=== PATIENT | male | born 1940 | race Caucasian/White ===

== ENCOUNTER → 2017-08-17 | Outpatient (CLI) | payer OTHER | LOC: BHFA 10:00 | PROVIDERS: ATTEND Internal Medicine Cardiovascular Disease | DX: I10 Essential (primary) hypertension (principal) ==

== ENCOUNTER 2017-09-02 06:33 | Inpatient (IN) | payer OTHER ==
[2017-09-02] MEDS ORDERED: NITROGLYCERIN 0.4 MG BTL SL PRN (06:37)
[2017-09-02] MEDS ORDERED: NS 1,000 ML IV SCH (06:37)
[2017-09-02] MEDS ORDERED: TEMAZEPAM 15 MG CAP PO PRN (06:37)
[2017-09-02] MEDS ORDERED: DIAZEPAM 5 MG TAB PO ONE (06:37)
[2017-09-02] MEDS ORDERED: ASPIRIN EC 325 MG TAB PO ONE ×2 (06:37→07:25)
[2017-09-02] MEDS ORDERED: FAMOTIDINE 20 MG TAB PO ONE (06:37)
[2017-09-02] MEDS ORDERED: diphenhydrAMINE 25 MG CAP PO ONE ×2 (06:37→07:25)
--- NOTE | 2017-09-02 06:56 | CPEKG ---
Heart Rate: 57 RR Interval: 1053 P-R Interval: 172 QRSD Interval: 112 QT Interval: 428 QTC Interval: 417 P [place]: 49 QRS [place]: -42 T Wave [place]: 44 EKG Severity - ABNORMAL ECG - EKG Impression: SINUS RHYTHM EKG Impression: LEFT ANTERIOR FASCICULAR BLOCK Electronically Signed By: Nikolai Moran 03-Sep-2017 13:08:38
[2017-09-02 07:16] LABS: PLATELET COUNT 203 10^3/uL (150-400)
[2017-09-02] MEDS ORDERED: FAMOTIDINE 20 MG TAB ONE (07:25)
[2017-09-02] MEDS ORDERED: DIAZEPAM 5 MG TAB ONE (07:25)
[2017-09-02] MEDS ORDERED: MIDAZOLAM 2 MG/2 ML VIAL ONE (07:29)
[2017-09-02] MEDS ORDERED: LIDOCAINE 1% 300 MG/30 ML SDV ONE (07:29)
[2017-09-02] MEDS ORDERED: fentaNYL 100 MCG/2 ML INJ ONE (07:29)
[2017-09-02] MEDS ORDERED: IOPAMIDOL (ISOVUE-370) 150 ML BTL IV ONE (07:30)
[2017-09-02 07:33] LABS: INR 1.01 (0.83-1.16); PROTIME(PATIENT) 13.5 SEC (12.0-15.0)
--- NOTE | 2017-09-02 08:29 | PDPROPOC ---
Sedation Plan of Care Sedation Plan of Care: vital signs stable, mental status noted, patient educated of risks, benefits, alternatives, patient can tolerate sedation ASA Classification: ASA 2 Planned drugs: fentanyl, midazolam Mallampati Score: Class 2 Mallampati Reference Image: Patient passed 3-3-2 rule?: Yes
--- NOTE | 2017-09-02 08:29 | PDHPUP ---
History & Physical Update H&P update statement: This history and physical update is based on an assessment of the patient which was completed after admission or registration (within 24 hours), but prior to the surgery/procedure. H&P update: H&P reviewed & patient examined, no change in patient's condition since H&P completed
[2017-09-02] MEDS ORDERED: ATROPINE SULFATE 1 MG/10 ML SYR IVP PRN (09:53)
[2017-09-02] MEDS ORDERED: ONDANSETRON 4 MG/2 ML VIAL IVP PRN (09:53)
--- NOTE | 2017-09-02 16:48 | CPIP ---
[f rep st] INVASIVE CARDIAC PROCEDURE DATE OF PROCEDURE: 09/02/2017 PROCEDURE: Coronary angiography. INDICATION: 1. Exertional symptoms of presyncope and syncope. 2. Exertional chest pain. 3. Abnormal stress test with chronotropic insufficiency. ACCESS: The patient was prepped and draped in the sterile fashion. 1% lidocaine was used to anesthe tize the right inguinal region. A 6-Egyptian introducer sheath was placed selectively into the right c ommon femoral artery via modified Seldinger technique. CORONARY ANGIOGRAPHY: A 6-Egyptian JL4 was advanced to the left main coronary artery and images obtain ed. The left main coronary artery bifurcated into an LAD and circumflex coronary arteries. The left main coronary artery was short but was free of any significant disease. The left anterior descendin g coronary artery is diffusely diseased. In the proximal segment, there is a long segmental 30% sten osis present. In the mid segment, there is a segmental 20% stenosis present. The circumflex coronar y artery was relatively small. The circumflex coronary artery appeared normal. A 6-Egyptian JR4 was a dvanced to the right coronary artery and images obtained. The right coronary artery is dominant. Th e right coronary artery had mild diffuse disease throughout. There was no stenosis greater than 10%. LEFT VENTRICULOGRAPHY: Left ventriculography was not performed. The patient will have an echocardio gram to evaluate LVF and valvular heart disease. /[id number]/MODL
[2017-09-03 04:39] LABS: PLATELET COUNT 189 10^3/uL (150-400)
[2017-09-03 04:47] LABS: INR 1.07 (0.83-1.16); PROTIME(PATIENT) 14.1 SEC (12.0-15.0)
[2017-09-03] MEDS ORDERED: BACITRACIN IRRIGATION/NS 50,000 UNITS/1,000 ML BTL IRR ONE ×2 (06:00→17:06)
[2017-09-03] MEDS ORDERED: NS 1,000 ML IV ONE ×2 (06:00→17:06)
[2017-09-03] MEDS ORDERED: diphenhydrAMINE 25 MG CAP PO ONE ×2 (06:00→17:06)
[2017-09-03] MEDS ORDERED: DIAZEPAM 5 MG TAB PO ONE (06:00)
[2017-09-03] MEDS ORDERED: ceFAZolin 2 GM/SWFI 2 GM/20 ML SYR IVP ONE ×2 (06:00→17:06)
[2017-09-03] MEDS ORDERED: BUPIVACAINE 0.5% 30 ML SDV ONE ×2 (08:48→17:08)
[2017-09-03] MEDS ORDERED: fentaNYL 100 MCG/2 ML INJ ONE ×2 (08:48→17:09)
[2017-09-03] MEDS ORDERED: LIDOCAINE 1% 300 MG/30 ML SDV ONE ×2 (08:48→17:08)
[2017-09-03] MEDS ORDERED: MIDAZOLAM 2 MG/2 ML VIAL ONE ×2 (08:48→17:08)
--- NOTE | 2017-09-03 08:49 | PDPROPOC ---
Sedation Plan of Care Sedation Plan of Care: vital signs stable, mental status noted, patient educated of risks, benefits, alternatives, patient can tolerate sedation ASA Classification: ASA 3 Planned drugs: fentanyl, midazolam Mallampati Score: Class 3 Mallampati Reference Image: Patient passed 3-3-2 rule?: Yes
[2017-09-03] MEDS ORDERED: LIDO/EPI 1% **for epidural** 30 ML SDV ONE ×2 (09:46→17:10)
--- NOTE | 2017-09-03 10:18 | ASMTCASEMG ---
Living Arrangements What is your living Answers: Alone arrangement? Who do you live with? Type Of Residence What kind of residence do Answers: House you live in? Discharge Plan Comments Coordination Status Comments Notes: CM spoke w/ GLENYS Mckeon regarding d/c POC. Pt is a 77 y/o man admitted for an coronary angiography. Anticipates that pt will d/c independent when medically stable. No therapies ordered at this time. CM available for changes. Plan: Independent Date Signed: 09/03/2017 10:17 AM Electronically Signed By:JOHNIE Olivarez
[2017-09-03] MEDS: CYANO/VITAMIN B12 1000 MCG TAB PO SCH (12:52)
[2017-09-03] MEDS: amLODIPine BESYLATE 5 MG TAB PO SCH (12:52)
[2017-09-03] MEDS: ASPIRIN 81 MG CHEWABLE TAB PO SCH (12:52)
[2017-09-03] MEDS: ATORVASTATIN CALCIUM 20 MG TAB PO SCH (12:52)
[2017-09-03] MEDS: ASCORBIC ACID 500 MG TAB PO SCH (12:52)
[2017-09-03] MEDS: CHOLECALCIFEROL VIT D3 1,000 UNITS TAB PO SCH (12:52)
[2017-09-03] MEDS: ENALAPRIL MALEATE 10 MG TAB PO SCH (12:53)
--- NOTE | 2017-09-03 14:07 | EPPROC ---
Electrophysiology Procedure Note: PROCEDURE PERFORMED: Implantation of an A/V Pacemaker Fluoroscopy INDICATION: Pt with episodes of syncope and presyncope found to have significant Sinus pauses of greater than 3 sec on multiple occasions. In view of this it was decided to perform a dual chamber pacemaker implant PROCEDURE NOTE: Patient presented to the cardiac catherization laboratory in a fasting, post absorptive state. Cardiac track laborer nurse administered moderate sedation. The left infraclavicular area was prepped and draped in the usual sterile fashion. Lidocaine plus bupivacaine was used for local anesthesia. Left subclavian venography was performed by injection of iodinated contrast into the left antecubital vein. This was done to assure patency of the vein and also to assess for any anatomical aberrations. Using a combination of blunt and sharp dissection and electrocautery, the dissection was carried down to the prepectoral fascia. All bleeding was controlled with electrocautery. Fluoroscopy was utilized during the entire procedure for venous access and placement of the leads. Using the usual technique, left celphalic vein was accessed and a glidewire was placed. Through this initially a 9F and later a 7F sheath was passed. Placement of the guidewires into the venous system was confirmed by low- pressure blood return and also by visualizing the guidewires advancing into the inferior vena cava. A purse string suture was applied around the guidewires. An active fixation ventricular lead was advanced into the right ventricular apex and screwed in place. An active fixation atrial lead was advanced into the right atrial appendage and screwed in place. The peel away sheaths were removed. Pacing thresholds, sensing parameters and lead impedances were measured. There was no diaphragmatic stimulation at maximum output. The leads were sutured to the prepectoral fascia with 3 nonabsorbable sutures each. The pocket was created and it was flushed using antibiotic solution. It was inspected for any bleeding. The leads were attached to the pacemaker securely. The pacemaker was inserted into the pocket and secured in place with a nonabsorbable suture. Fluoroscopy was performed in TAYLOR and SLOVAK planes to verify right-sided placement of the leads. Also fluoroscopy of the pacemaker pocket was performed. The pacemaker pocket was closed in 3 layers with absorbable vicryl sutures. Steristrips were placed. Appropriate dressing was applied. The patient left the cardiac catheterization laboratory in stable condition. Serial Numbers: Device: [id number] Edora [address] Bower SN [id number] Atrial Lead: Biotronik Solia S45 SN [id number] Ventricular Lead: Biotronik Solia S53 SN [id number] Stimulation Thresholds & Impedance Measurements: Atrial Lead 1.8mV, 0.7@0.4ms, 741Ohms Ventricular Lead 7.6mV, 0.5@0.4ms, 760Ohms Levon Pacing Parameters Pacing mode: DDD CLS Lower rate: 60 Upper tracking rate: 130 Upper sensor rate: 130
[2017-09-03] MEDS: ACETAMINOPHEN 325 MG TAB PO PRN (16:14)
--- NOTE | 2017-09-03 17:31 | PDPROPOC ---
Sedation Plan of Care Sedation Plan of Care: vital signs stable, mental status noted, patient educated of risks, benefits, alternatives, patient can tolerate sedation ASA Classification: ASA 3 Planned drugs: fentanyl, midazolam, other Mallampati Score: Class 3 Mallampati Reference Image: Patient passed 3-3-2 rule?: Yes
[2017-09-04] MEDS: ACETAMINOPHEN 325 MG TAB PO PRN (02:42)
[2017-09-04 04:26] LABS: PLATELET COUNT 201 10^3/uL (150-400)
[2017-09-04] MEDS: ENALAPRIL MALEATE 10 MG TAB PO SCH (07:45)
[2017-09-04] MEDS: ASPIRIN 81 MG CHEWABLE TAB PO SCH (07:45)
[2017-09-04] MEDS: ASCORBIC ACID 500 MG TAB PO SCH (07:45)
[2017-09-04] MEDS: CYANO/VITAMIN B12 1000 MCG TAB PO SCH (07:45)
[2017-09-04] MEDS: amLODIPine BESYLATE 5 MG TAB PO SCH (07:45)
[2017-09-04] MEDS: CHOLECALCIFEROL VIT D3 1,000 UNITS TAB PO SCH (07:45)
[2017-09-04] MEDS: ATORVASTATIN CALCIUM 20 MG TAB PO SCH (07:45)
[2017-09-04 08:27] VITALS: BP 146/85; PULSE 72; RESP 18; TEMP 98.1; O2SAT 97
--- NOTE | 2017-09-04 09:01 | EPPROC ---
Electrophysiology Procedure Note: PROCEDURE PERFORMED: 1. Pacemaker revision INDICATION: Increased atrial lead impedance 6 hours after implant of pacemaker PROCEDURE NOTE: Patient presented to the cardiac catherization laboratory in a fasting, postabsorptive state. LA administered. The left infraclavicular area was prepped and draped in the usual sterile fashion. Lidocaine plus bupivacaine was used for local anesthesia. Using a combination of blunt and sharp dissection and electrocautery, the dissection was carried down to the prepectoral fascia and the existing pacemaker pocket was opened. The pacemaker generator was disconnected from the leads. The leads were attached to the pacemaker securely. The pacemaker pocket was copiously irrigated with antibiotic solution. The pocket was again inspected for any bleeding. . The pacemaker was inserted into the pocket and secured in place with a nonabsorbable suture. The pacemaker pocket was closed in 3 layers with absorbable monocryl sutures. Appropriate dressing was applied. The patient left the cardiac catheterization laboratory in stable condition.
--- NOTE | 2017-09-04 09:09 | CPEKG ---
Heart Rate: 62 RR Interval: 968 P-R Interval: 172 QRSD Interval: 108 QT Interval: 416 QTC Interval: 423 P [place]: 45 QRS [place]: -46 T Wave [place]: 42 EKG Severity - ABNORMAL ECG - EKG Impression: SINUS RHYTHM EKG Impression: LAD, CONSIDER LAFB OR INFERIOR INFARCT Electronically Signed By: Nikolai Moran 05-Sep-2017 09:02:02
--- NOTE | 2017-09-04 12:38 | ASDISCHSUM ---
Discharge Information Plan Status:Home with No Needs Medically Cleared to Leave:09/03/2017 Discharge Date:09/04/2017 10:59 AM CM D/C Disposition: ADT D/C Disposition:Home, Routine, Self-Care Projected Discharge Date:09/04/2017 12:00 AM Transportation at D/C: Discharge Delay Reason: Follow-Up Date:09/04/2017 12:00 AM Discharge Slot: Final Diagnosis: Placement Information Patient Contact Information Contact Name:NETO Relationship:Daughter Address: Work Phone: City: [facility] Phone: State/Appwiz Code: Email: Financial Information Financial Class: Primary Plan Desc:MEDICARE INPATIENT Primary Plan Number:[id number] Secondary Plan Desc:[place] P[place] H[place] ACC LOCAL Secondary Plan Number:[id number] Assessment Information [facility] Initial CM Assessment Living Arrangements What is your living Answers: Alone arrangement? Who do you live with? Type Of Residence What kind of residence do Answers: House you live in? Discharge Plan Comments Coordination Status Comments Notes: CM spoke w/ GLENYS Mckeon regarding d/c POC. Pt is a 77 y/o man admitted for an coronary angiography. Anticipates that pt will d/c independent when medically stable. No therapies ordered at this time. CM available for changes. Plan: Independent Date Signed: 09/03/2017 10:17 AM Electronically Signed By:JOHNIE Olivarez Intervention Information
--- NOTE | 2017-09-04 12:55 | GDS ---
[f rep st] DISCHARGE SUMMARY SUPERVISING FREEZER LABORATORY TECHNICIAN: Dr. Donaldo Galvez ADMISSION DIAGNOSES: 1. Exertional chest pain. 2. Abnormal stress test. 3. Chronotropic insufficiency. 4. Presyncope and syncope. 5. Hypertension. 6. Valvular heart disease. 7. Dilated ascending aorta at 4.0 cm. DISCHARGE DIAGNOSES: 1. Coronary artery disease, non flow limiting. 2. Hyperlipidemia. 3. Chronotropic insufficiency. 4. Presyncope and syncopal events. 5. Status post Biotronik pacemaker implantation with right atrial and right ventricular Biotronik leads. 6. Hypertension. 7. Valvular heart disease. 8. Dilated ascending aorta at 4.0 cm. PROCEDURES PERFORMED DURING HOSPITALIZATION: 1. Electrocardiogram. 2. Diagnostic left heart catheterization. 3. Permanent pacemaker implantation, Biotronik device with right atrial and right ventricular leads. 4. Pacemaker revision. 5. Chest x-ray. BRIEF HISTORY: Please see H and P: Briefly, the patient is a 77-year-old male with history of hypertension, memory issues, previous prostate cancer with remote total prostatectomy, hyperlipidemia. He recently had a syncopal event in July of 2017, was seen at [facility], he did undergo stress testing, which showed no ischemic changes but chronotropic insufficiency. He is noted from echocardiogram that was done during hospitalization to have normal LVEF of 65% with no focal wall motion abnormalities, mild AI, MR and TR, and dilated ascending aorta. He was seen by Dr. Li on August 31, reporting exertional chest pressure. It was felt at that time, it would best for the patient to be admitted to the hospital for diagnostic heart catheterization, and with recent history of syncope and chronotropic insufficiency, if heart catheterization did not show any flow-limiting disease, undergo pacemaker implantation. HOSPITAL COURSE: Patient was admitted through the CVC, prepped for procedure, and taken to the cardiac catheterization lab. There, Dr. Xiong performed a diagnostic left heart catheterization from the right femoral artery approach. Findings were left main was free of any significant disease, left anterior descending artery had diffuse disease in the proximal segment with a long 30% stenosis, mid segment there was a 20% stenosis. The circumflex artery was small , the coronary appeared normal, RCA was dominant, it had mild diffuse disease throughout with no greater stenosis than 10%. No LV gram was performed due to patient's recent echocardiogram. At that point, patient was taken back to the CVC, and ultimately to the PCU for overnight observation. He had no bleeding issues from the groin site, no complication from catheterization. He was made n.p.o. after midnight, and on September 03, he was taken to the electrophysiology lab where Dr. Galvez implanted a dual-chambered Biotronik generator with right atrial and right ventricular lead, the leads both Biotronik. There were no complication. The patient was taken back to the CVC for recovery and ultimately to PCU. Noted within 6 hours, atrial lead impedance did go up; with concern about possible lead dislodgement, patient was taken back to the electrophysiology lab. There, his pocket was opened, device was removed, lead impedances were checked again, showing no error. Device was reconnected to the leads using shoe singer torque wrench, which showed showing proper tightening, and device was placed back in the pocket and incision was closed. No complications following that. The patient was again returned to the PCU for overnight observation. The patient today reports he had no problems overnight, denying any chest pain, pressure or shortness of breath. He has been up and walking in the unit without any difficulties, denying any lightheadedness or palpitations. Electrocardiogram showing sinus rhythm to occasional atrial-paced rhythm. No other malignant arrhythmias noted. PHYSICAL EXAMINATION: Physical examination was done today. GENERAL APPEARANCE : A medium built, well-groomed, male. He is alert and oriented to person, place, time, and situation. Appears to be under no acute distress. CURRENT VITAL SIGNS: 146/85, heart rate of 72, respirations 18, saturating 97% on room air. Temperature of 36.7 degrees Celsius. HEENT: Head is normocephalic. Lips and tongue are pink and moist with no signs of cyanosis. Conjunctivae pink. NECK: Trachea is midline, +2 carotid pulses bilateral. No auscultated bruits, no jugular vein distention. RESPIRATORY: Lungs clear to auscultation, no rhonchi, rales or wheezes. No accessory muscle use. No intercostal muscle retraction noted. CARDIAC: Regular rate, regular rhythm, S1 , S2, 1 to 2/6 systolic murmur noted along the left sternal border. No S3 gallops, rubs or murmurs noted. ABDOMEN: Soft, nontender, good bowel sounds x 4 quadrants. No organomegaly. No palpable masses. SKIN: [place], warm, and dry , no cyanosis, no clubbing, no peripheral edema. VASCULAR: +2 carotids bilateral, +2 radials bilateral, +2 dorsal pedal and posterior tibial pulses bilateral. PROCEDURE SITES: Right groin site from heart catheterization showed no redness, swelling, drainage, ecchymosis or hematoma. No auscultated bruit over the site. Pacemaker insertion site, left anterior chest just distal to clavicle, incision intact with Steri-Strips. No redness, swelling, drainage , ecchymosis, or hematoma. Dressing change done at this time. LABORATORY STUDIES: Laboratory studies drawn today show WBC of 10.95, hemoglobin of 15.3, hematocrit of 46.5, platelet count of 201. Sodium 141, potassium 4.4, chloride 103, CO2 27, BUN 26, creatinine 1.2, glucose 109, calcium 9.0. It was noted yesterday that his AST was 23, his ALT was 45, alkaline phosphate 66, total protein 6.0, albumin 3.2. On day of admission, fasting lipid panel showed triglycerides of 100, total cholesterol of 181, LDL of 118 and HDL of 43. STUDIES: Cardiac catheterization as mentioned above. EP procedure with pacemaker implantation, and lead and pacemaker revision as mentioned above. Electrocardiogram today shows sinus rhythm, left anterior fascicular block. Chest x-ray done today showing no acute cardiopulmonary process, pacemaker implantation with no delayed pneumothorax. [facility] representative showing the device functioning within normal limits. DISCHARGE DISPOSITION: Patient will be discharged home in stable condition. He is under activity restrictions of not lifting more than 10 pounds for next week and no strenuous activity for the next 2 weeks. DISCHARGE MEDICATIONS: Please see discharge medication reconciliation sheet, note patient will resume aspirin therapy, he has been started on atorvastatin, he has been provided a lab slip to get a fasting lipid, liver and CPK level done in 6-8 weeks. DISCHARGE INSTRUCTIONS: Post cardiac catheterization and pacemaker implantation discharge instructions went over with the patient including monitoring for signs of infection, activity restriction, shower precautions, and medication compliancy. The patient has been noted to be mildly hypertensive throughout his hospitalization, he was noted on Thursday to be hypotensive and recently had his enalapril decreased. I have provided him with home blood pressure logs, which I have asked him to monitor his blood pressure on a daily basis, and bring them back for his followup office visit. He has a wound check set up in 1 week's time. He will also get a pacemaker check done at that time. He will also follow up with Dr. Li, his primary face worker, in 1 month's time. Appointments have been made. Post discharge instructions went over with the patient and his daughter, they verbalized understanding and have no questions. They have been told that if any problems or concerns post discharge, they are to notify our office or return to the hospital. Total time spent on discharge, greater than 30 minutes. /[id number]/MODL MTDD
== END 2017-09-04 10:59 | disposition home or self-care (01) | DRG 244 ==
LOC: FCATH 06:33 → F2W 09:34 → OBSVTOIN 13:18 → F2W 15:05
PROVIDERS: ADMIT Internal Medicine Cardiovascular Disease; ATTEND Internal Medicine Cardiovascular Disease
PROC: B2111ZZ Fluoroscopy of Multiple Coronary Arteries using Low Osmolar Contrast (ICD-10-PCS; 2017-09-02)
PROC: B2151ZZ Fluoroscopy of Left Heart using Low Osmolar Contrast (ICD-10-PCS; 2017-09-02)
PROC: 0JH606Z Insertion of Pacemaker, Dual Chamber into Chest Subcutaneous Tissue and Fascia, Open Approach (ICD-10-PCS; principal; 2017-09-03)
PROC: 02H63JZ Insertion of Pacemaker Lead into Right Atrium, Percutaneous Approach (ICD-10-PCS; principal; 2017-09-03)
PROC: 02HK3JZ Insertion of Pacemaker Lead into Right Ventricle, Percutaneous Approach (ICD-10-PCS; principal; 2017-09-03)
PROC: 0JWT0PZ Revision of Cardiac Rhythm Related Device in Trunk Subcutaneous Tissue and Fascia, Open Approach (ICD-10-PCS; 2017-09-04)
DX: I49.8 Other specified cardiac arrhythmias (principal); I44.4 Left anterior fascicular block; I25.10 Atherosclerotic heart disease of native coronary artery without angina pectoris; I77.810 Thoracic aortic ectasia; E78.5 Hyperlipidemia, unspecified; I11.9 Hypertensive heart disease without heart failure; Z85.46 Personal history of malignant neoplasm of prostate; Z90.79 Acquired absence of other genital organ(s)
CPT/HCPCS: C1760; C1769; C1785; C1898; J0690; J1644; J2250; J3010; Q9967

== ENCOUNTER → 2018-02-24 | Outpatient (CLI) | payer OTHER ==
[~2018-02-24] MED LIST: GADOBUTROL 10 ML VIAL IVP ONE
== END ==
LOC: FIMAGING 12:29
PROVIDERS: ATTEND Physician Assistant Medical
DX: G31.9 Degenerative disease of nervous system, unspecified (principal); E78.5 Hyperlipidemia, unspecified; I25.10 Atherosclerotic heart disease of native coronary artery without angina pectoris; Z85.46 Personal history of malignant neoplasm of prostate
CPT/HCPCS: 70553; A9585

== ENCOUNTER → 2018-04-13 | Outpatient (CLI) | payer OTHER | LOC: SBRMNEURO 20:00 | PROVIDERS: ATTEND Psychiatry & Neurology Sleep Medicine | DX: G47.31 Primary central sleep apnea (principal) ==

== ENCOUNTER 2018-04-23 15:58 | Emergency (ER) | payer OTHER ==
[2018-04-23] MEDS ORDERED: LET GEL TOPICAL 1 EA SYR TP ONE ×2 (16:12→16:19)
[2018-04-23] MEDS ORDERED: TDAP ADULT 0.5 ML INJ (BOOSTRIX) IM ONE (16:12)
--- NOTE | 2018-04-23 17:24 | EDPHY ---
H & P Time Seen by Provider: 04/23/18 16:29 HPI/ROS: CC: [ Scraped her right knee, tear to right elbow, laceration left hand ] HPI: Medically stable 77-year-old male who is currently not on any blood thinners. Took a bit of a fall a mechanical in nature without syncope approximately 1 hr prior to admission. He fell forward landing on his right knee, as well as his left palm. He denies any syncope or presyncope. He also toward the right lateral aspect of the elbow just above the elbow joint. There is a skin tear there. His last tetanus shot was more than 10 years He sustained abrasions to the left knee. He is able to weight-bearing complains of no difficulty with range of motion except for sense of tightness. With respect to the left palm over the thenar eminence there is a laceration. Complains of no bony tenderness. He complains of a little make a fist. You to the area as of 16 months ago, from [facility] ROS: Constitutional - feeling well before the fall Head no injury or hematoma. Eyes - no diplopia, blurred vision. ENT - no earache, no fluid from ear. No fluid from nose. No facial injury Neck: no pain or decreased ROM Thorax did not injury to chest or ribs or spine, no shortness of breath Abdominal - denies any abdomen, or back injury. No nausea. Musculoskeletal - see above Integument - see above Neurological - no headache, numbness, tingling, or paresthesias. No focal motor weakness. No amnesia or LOC. No fluid from ear or nose 10 point ROS otherwise negative Smoking Status: Former smoker Physical Exam: Constitutional: Well-nourished, well-developed, no acute distress. [No odor of alcohol] Head: No cephalohematoma. No battles sign or racoon eyes. Neck: Full active range of motion without pain Eyes: Pupils equal and reactive. ENT: Ears are without hemotympanum. Mouth exam, atraumatic. Chest: Ribs are nontender. No signs of splinting respirations. Back: Nontender thoracic and lumbar sacral spine Abdomen: Nontender. No organomegaly. No abrasions Musculoskeletal: Moves all extremities without difficulty. No joint swelling. No ecchymosis. No deformities. Skin: Right elbow: There is a skin tear present to the lateral aspect of the right elbow overlying the distal portion of the right humerus. This is 5 cm with a distal based. It teases back perfectly such that there is no missing tissue. Right knee: Split thickness abrasions to the right knee, full range of motion, no laxity, no effusion. Left hand: There are 2 lacerations 1 just supposed total 4 cm that are full- thickness. There is no bony tenderness. Full range of motion. No rotatory deformities. Neuro: Alert and oriented with a GCS of 15. No acute distress. No headache. Psych: Normal mood and affect. Constitutional: Initial Vital Signs Temperature (C) 37.1 C 04/23/18 16:08 Heart Rate 71 04/23/18 16:08 Respiratory Rate 18 04/23/18 16:08 Blood Pressure 152/86 H 04/23/18 16:08 O2 Sat (%) 96 04/23/18 16:08 O2 Delivery Mode Room Air Allergies/Adverse Reactions: No Known Allergies Allergy (Unverified 04/23/18 16:07) Home Medications: Medication Instructions Recorded Ascorbic Acid [Vitamin C 500 mg 500 mg PO DAILY 09/01/17 (*)] Aspirin [Aspirin 81mg (*)] 81 mg PO DAILY 09/01/17 Cholecalciferol Vit D3 [Vitamin D3 1,000 units PO DAILY 09/01/17 (*)] Cyanocobalamin [Vitamin B12 (*)] 1,000 mcg PO DAILY 09/01/17 Enalapril Maleate [Vasotec 10 MG 10 mg PO DAILY 09/01/17 (*)] amLODIPine BESYLATE [Norvasc 5 mg 5 mg PO DAILY 09/01/17 (*)] Acetaminophen [Tylenol 325mg (*)] 650 mg PO QID PRN tab 09/04/17 Atorvastatin Calcium [Lipitor 20 20 mg PO DAILY #30 tab 09/04/17 mg (*)] Medical Decision Making Procedures: Procedure: Laceration repair. Options presented to patient, consented to repair. After skin prep with chloraseptic the wound was anesthesized with locally infiltrated with lidocaine 1 % without epinephrine the wound was Cleansed with irrigation by Tech The length of the wound was 4 cm. Inspection and exploration of the wound, with gloved finger and forceps ,prior to closure revealed no evidence of foreign body and no involvement of deeper structures. Closure was obtained using 4 0 nylon running sutures.. At the end of the procedure, wound edges were well approximated and hemostasis was achieved. Patient tolerated procedure well. Differential Diagnosis: The differential diagnosis includes but is not limited to: Fracture, Sprain, Strain, Dislocation, Nerve injury, Contusion, skin avulsion - Data Points Medications Given: Discontinued Medications Diphtheria/Tetanus/Acell Pertussis (Boostrix) 0.5 ml IM .ONCE ONE Stop: 04/23/18 16:13 Last Admin: 04/23/18 16:15 Dose: 0.5 ml Tetracaine/Epinephrine/Lidocaine (Let Gel Topical) 1 ea TP EDNOW ONE Stop: 04/23/18 16:13 Last Admin: 04/23/18 16:15 Dose: 1 ea Tetracaine/Epinephrine/Lidocaine (Let Gel Topical) 1 ea TP EDNOW ONE Stop: 04/23/18 16:20 Last Admin: 04/23/18 16:21 Dose: 1 ea Departure - Departure Disposition: Home, Routine, Self-Care Clinical Impression: Abrasion Laceration of hand Qualifiers: Encounter type: initial encounter Foreign body presence: without foreign body Laterality: left Qualified Code(s): S61.412A - Laceration without foreign body of left hand, initial encounter Avulsion of skin of elbow Qualifiers: Encounter type: initial encounter Laterality: left Qualified Code(s): S51.002A - Unspecified open wound of left elbow, initial encounter Condition: Good Instructions: Laceration (ED), Skin Avulsion (ED) Additional Instructions: Take Tylenol for the pain. Ice application of helps Keep these wounds clean and dry. Splint to the left thumb until sutures route Sutures out in 10-12 days, usually. You may come in for a suture check in a day 's time, perhaps will take him out at that point Referrals: NONE *PRIMARY CARE P,. [Primary Care Provider] - As per Instructions
[2018-04-23 18:05] VITALS: BP 133/84
== END 2018-04-23 18:13 | disposition home or self-care (01) ==
LOC: CED 15:58
PROC: 0HQGXZZ Repair Left Hand Skin, External Approach (ICD-10-PCS; principal; 2018-04-23)
DX: S61.412A Laceration without foreign body of left hand, initial encounter (principal); S80.211A Abrasion, right knee, initial encounter; S51.801A Unspecified open wound of right forearm, initial encounter; Z23 Encounter for immunization; Z87.891 Personal history of nicotine dependence; W19.XXXA Unspecified fall, initial encounter; Y92.9 Unspecified place or not applicable; Y93.9 Activity, unspecified; Y99.9 Unspecified external cause status
CPT/HCPCS: 12002; 90471; 90715; 99283; L3807

== ENCOUNTER → 2018-05-10 | Outpatient (CLI) | payer OTHER | LOC: FCPNEURO 21:00 | PROVIDERS: ATTEND Psychiatry & Neurology Sleep Medicine | DX: G47.31 Primary central sleep apnea (principal); G47.33 Obstructive sleep apnea (adult) (pediatric) ==

== ENCOUNTER 2018-05-15 07:45 | Emergency (ER) | payer OTHER ==
--- NOTE | 2018-05-15 08:33 | EDPHY ---
H & P Stated Complaint: PT. States rt lat neck pain with rt shoulder x2 weeks intermittent,increase Time Seen by Provider: 05/15/18 08:14 HPI/ROS: CHIEF COMPLAINT: Neck pain HISTORY OF PRESENT ILLNESS: The patient is a 78-year-old man who essentially has no complaints but his girlfriend and daughter who are here states that he has been complaining over the last 3 days of pain in his right trapezius. He fell about 3 weeks ago and had a laceration to his hand and knee but did not have any complaints of neck or head injury at that time. He does not think it is associated with the fall. Over the last few days however he is had stiffness and pain in his right trapezius. He notices it most when he turns his head to the right. He denies chest pain or shortness of breath. No diaphoresis. He has been taking ibuprofen with moderate improvement. He has not had any recent trauma or injury. He denies headaches. He saw his primary yesterday who gave him diclofenac cream to use on the muscle. His girlfriend is leaving out of town tomorrow and is concerned about him being here alone. Also she states that he has intermittent cramping in his legs and feet. She noticed this is particularly after he plays golf in the heat and she thinks he gets dehydrated. She would like to have his electrolytes checked. Severity: Mild REVIEW OF SYSTEMS: Constitutional: denies: chills, fever, recent illness, recent injury EENTM: denies: blurred vision, double vision, nose congestion Respiratory: denies: cough, shortness of breath Cardiac: denies: chest pain, irregular heart rate, lightheadedness, palpitations Gastrointestinal/Abdominal: denies: abdominal pain, diarrhea, nausea, vomiting, blood streaked stools Genitourinary: denies: dysuria, frequency, hematuria, pain Musculoskeletal: See HPI Skin: denies: lesions, rash, jaundice, bruising Neurological: denies: headache, numbness, paresthesia, tingling, dizziness, weakness Hematologic/Lymphatic: denies: blood clots, easy bleeding, easy bruising Immunologic/allergic: denies: HIV/AIDS, transplant 10 systems reviewed and negative except as noted EXAM: GENERAL: Well-appearing, well-nourished and in no acute distress. HEAD: Atraumatic, normocephalic. EYES: Pupils equal round and reactive to light, extraocular movements intact, sclera anicteric, conjunctiva are normal. ENT: TMs normal, nares patent, oropharynx clear without exudates. Moist mucous membranes. NECK: Normal range of motion, supple without lymphadenopathy or JVD. LUNGS: Breath sounds clear to auscultation bilaterally and equal. No wheezes rales or rhonchi. HEART: Regular rate and rhythm without murmurs, rubs or gallops. ABDOMEN: Soft, nontender, normoactive bowel sounds. No guarding, no rebound. No masses appreciated. BACK: No CVA tenderness, no spinal tenderness, step-offs or deformities EXTREMITIES: Normal range of motion, no pitting or edema. No clubbing or cyanosis. NEUROLOGICAL: Cranial nerves II through XII grossly intact. Normal speech, normal gait. 5/5 strength, normal movement in all extremities, normal sensation , normal reflexes PSYCH: Normal mood, normal affect. SKIN: Warm, dry, normal turgor, no visible rashes or lesions. Source: Patient Exam Limitations: No limitations - Personal History Current Tetanus Diphtheria and Acellular Pertussis (TDAP): Yes Tetanus Vaccine Date: 2017 - Medical/Surgical History Hx Asthma: No Hx Chronic Respiratory Disease: No Hx Diabetes: No Hx Cardiac Disease: Yes Hx Renal Disease: No Hx Cirrhosis: No Hx Alcoholism: No Hx HIV/AIDS: No Hx Splenectomy or Spleen Trauma: No Other PMH: pacer, htn, high cholestrol, prostatectomy -CA - Family History Significant Family History: No pertinent family hx - Social History Smoking Status: Former smoker Alcohol Use: Sober Drug Use: None Constitutional: Initial Vital Signs Temperature (C) 36.7 C 05/15/18 07:55 Heart Rate 62 05/15/18 07:55 Respiratory Rate 16 05/15/18 07:55 Blood Pressure 162/95 H 05/15/18 07:55 O2 Sat (%) 96 05/15/18 07:55 O2 Delivery Mode Room Air Allergies/Adverse Reactions: No Known Allergies Allergy (Verified 05/15/18 07:52) Home Medications: Medication Instructions Recorded Ascorbic Acid [Vitamin C 500 mg 500 mg PO DAILY 09/01/17 (*)] Aspirin [Aspirin 81mg (*)] 81 mg PO DAILY 09/01/17 Cholecalciferol Vit D3 [Vitamin D3 1,000 units PO DAILY 09/01/17 (*)] Cyanocobalamin [Vitamin B12 (*)] 1,000 mcg PO DAILY 09/01/17 Enalapril Maleate [Vasotec 10 MG 10 mg PO DAILY 09/01/17 (*)] amLODIPine BESYLATE [Norvasc 5 mg 5 mg PO DAILY 09/01/17 (*)] Acetaminophen [Tylenol 325mg (*)] 650 mg PO QID PRN tab 09/04/17 Atorvastatin Calcium [Lipitor 20 20 mg PO DAILY #30 tab 09/04/17 mg (*)] Diazepam [Valium 2 MG (*)] 2 mg PO Q6-8PRN PRN #10 tab 05/15/18 Diazepam [Valium 5 MG (*)] 2.5 mg PO TID PRN #10 tab 05/15/18 Diclofenac Sodium 1% 05/15/18 Medical Decision Making - Diagnostics EKG Interpretation: An EKG obtained and was read and documented in trace view. Please see trace view for full reading and report. Atrial paced rhythm, no acute ischemic changes ED Course/Re-evaluation: Discussed the patient's lab work which is reassuring. He remains asymptomatic and is eager to go home. I will give him a prescription for a few Valium to see if this helps with his muscular pain. He has no bony tenderness. No signs of spinal cord injury or radiculopathy. No weakness or numbness. Patient and family agree with this plan. I warned him not to drive or operate heavy machinery. Differential Diagnosis: Partial list of the Differential diagnosis considered include but were not limited to; neck strain, dehydration, electrolyte abnormality and although unlikely based on the history and physical exam, I also considered neck injury, radiculopathy, acute coronary disease, PE, biliary disease. I discussed these differential diagnoses and the plan with the patient as well as the usual and expected course. The patient understands that the diagnosis is provisional and that in medicine we are not always correct and that further workup is often warranted. Usual and customary warnings were given. All of the patient's questions were answered. The patient was instructed to return to the emergency department should the symptoms at all worsen or return, otherwise to followup with the physician as we discussed. - Data Points Laboratory Results: 05/15/18 05/15/18 08:43 08:42 POC Sodium 143 mEq/L mEq/L (135-145) POC Potassium 3.9 mEq/L mEq/L (3.3-5.0) POC Chloride 101.0 mEq/L mEq/L (97-110) POC Total CO2 27 mEq/L mEq/L (22-31) POC BUN 20 mg/dL mg/dL (7-23) POC Creatinine 0.9 mg/dL mg/dL (0.7-1.3) POC Glucose 115 mg/dL H mg/dL (70-100) POC Calcium 9.6 mg/dL mg/dL (8.5-10.4) POC Troponin I 0.00 ng/mL ng/mL (0.00-0.08) Point of Care Test Results: Chemistry 05/15/18 05/15/18 08:43 08:42 POC Sodium 143 mEq/L mEq/L (135-145) POC Potassium 3.9 mEq/L mEq/L (3.3-5.0) POC Chloride 101.0 mEq/L mEq/L (97-110) POC Total CO2 27 mEq/L mEq/L (22-31) POC BUN 20 mg/dL mg/dL (7-23) POC Creatinine 0.9 mg/dL mg/dL (0.7-1.3) POC Glucose 115 mg/dL H mg/dL (70-100) POC Calcium 9.6 mg/dL mg/dL (8.5-10.4) POC Troponin I 0.00 ng/mL ng/mL (0.00-0.08) Departure - Departure Disposition: Home, Routine, Self-Care Clinical Impression: Strain of right trapezius muscle Qualifiers: Encounter type: initial encounter Qualified Code(s): S46.811A - Strain of other muscles, fascia and tendons at shoulder and upper arm level, right arm, initial encounter Condition: Fair Instructions: Diazepam (By mouth), Acute Neck Pain (ED) Referrals: Enio Kim MD [Primary Care Provider] - As per Instructions Prescriptions: Diazepam [Valium 2 MG (*)] 2 mg PO Q6-8PRN PRN #10 tab PRN Reason: Muscle strain Diazepam [Valium 5 MG (*)] 2.5 mg PO TID PRN #10 tab PRN Reason: Spasms
--- NOTE | 2018-05-15 08:37 | CPEKG ---
Test Reason : OPEN Blood Pressure : / mmHG Vent. Rate : 064 BPM Atrial Rate : 064 BPM P-R Int : 173 ms QRS Dur : 104 ms QT Int : 402 ms P-R-T Axes : -22 -53 044 degrees QTc Int : 415 ms Atrial-paced rhythm Left anterior fascicular block Confirmed by Jose Angel Mendes ([id number]) on 05/15/2018 8:37:41 AM Referred By: Confirmed By:Jose Angel Mendes
[2018-05-15 09:41] VITALS: BP 150/88
== END 2018-05-15 09:30 | disposition home or self-care (01) ==
LOC: CED 07:45
DX: S46.811A Strain of other muscles, fascia and tendons at shoulder and upper arm level, right arm, initial encounter (principal); I10 Essential (primary) hypertension; Z95.0 Presence of cardiac pacemaker; E78.00 Pure hypercholesterolemia, unspecified; W19.XXXA Unspecified fall, initial encounter; Y92.9 Unspecified place or not applicable; Z87.891 Personal history of nicotine dependence
CPT/HCPCS: 80048-PO; 84484-PO

== ENCOUNTER → 2018-08-20 | Outpatient (CLI) | payer OTHER | LOC: BHLMT 10:00 | PROVIDERS: ATTEND Internal Medicine Cardiovascular Disease | DX: I77.810 Thoracic aortic ectasia (principal) | CPT/HCPCS: 93306-PO ==

== ENCOUNTER 2018-09-12 14:22 | Emergency (ER) | payer OTHER ==
[2018-09-12 14:38] VITALS: BP 170/98
--- NOTE | 2018-09-12 15:04 | EDPHY ---
H & P Stated Complaint: left side head pain radiating into neck x 24 - 48 h, dental cleaning Time Seen by Provider: 09/12/18 14:56 HPI/ROS: Chief Complaint: Headache HPI: 78-year-old male was no significant medical problems has been experiencing brief episodes of a very sharp pain in the left side of his head for the last 3-4 days. These occurred after he had a 2 hr dental deep cleaning last Thursday. He has been experiencing sharp lancing pain in front of his left you're going up to the top of his head and down to his neck. Episodes last for fraction of a 2nd and then completely go away. In between the episodes he has not have any pain. Is almost like a "electrical shock". Does not have a history of prior episodes. No temporal pain. No vision changes. No hearing changes. No fevers or chills. No neck stiffness. Does not have a history of prior headaches. Episodes occur every several minutes. They seem to be increasing in frequency but not increasing in intensity. ROS: 10 systems were reviewed and were negative except those elements noted in the HPI. PMH: Denies Social History: No smoking, no alcohol, no recreational drug use Family History: non-contributory Physical Exam: Gen: Awake, Alert, No Distress HEENT: Ears: Normal Nose: no rhinorrhea Eyes: PERRLA, EOMI Mouth: Moist mucosa Neck: Supple, no JVD Chest: nontender, lungs clear to auscultation Heart: S1, S2 normal, no murmur Abd: Soft, non-tender, no guarding Back: no CVA tenderness, no midline tenderness Ext: no edema, non-tender Skin: no rash Neuro: CN II-XII intact, Sensation grossly intact, Strength 5/5 in bilateral upper and lower extremities - Personal History Current Tetanus Diphtheria and Acellular Pertussis (TDAP): Yes Tetanus Vaccine Date: 2017 - Medical/Surgical History Hx Asthma: No Hx Chronic Respiratory Disease: No Hx Diabetes: No Hx Cardiac Disease: Yes Hx Renal Disease: No Hx Cirrhosis: No Hx Alcoholism: No Hx HIV/AIDS: No Hx Splenectomy or Spleen Trauma: No Other PMH: pacer, htn, high cholestrol, prostatectomy -CA. hernia repair inguinal - Social History Smoking Status: Former smoker Constitutional: Initial Vital Signs Temperature (C) 36.6 C 09/12/18 14:31 Heart Rate 68 02/10/19 14:31 Respiratory Rate 16 09/12/18 14:31 Blood Pressure 170/98 H 09/12/18 14:31 O2 Sat (%) 96 09/12/18 14:31 O2 Delivery Mode Room Air Allergies/Adverse Reactions: No Known Allergies Allergy (Verified 09/12/18 14:38) Home Medications: Medication Instructions Recorded Ascorbic Acid [Vitamin C 500 mg 500 mg PO DAILY 09/01/17 (*)] Aspirin [Aspirin 81mg (*)] 81 mg PO DAILY 09/01/17 Cholecalciferol Vit D3 [Vitamin D3 1,000 units PO DAILY 09/01/17 (*)] Cyanocobalamin [Vitamin B12 (*)] 1,000 mcg PO DAILY 09/01/17 Enalapril Maleate [Vasotec 10 MG 10 mg PO DAILY 09/01/17 (*)] amLODIPine BESYLATE [Norvasc 5 mg 5 mg PO DAILY 09/01/17 (*)] Atorvastatin Calcium [Lipitor 20 20 mg PO DAILY #30 tab 09/04/17 mg (*)] Co Q-10 09/12/18 Flaxseed 09/12/18 Magnesium 09/12/18 Melatonin 09/12/18 Meloxicam 09/12/18 carBAMazepine [Carbamazepine] 200 mg PO BID #10 tablet 09/12/18 Medical Decision Making ED Course/Re-evaluation: 78-year-old male with classic symptoms of trigeminal neuralgia. He has not have any neurologic or historical findings at a red flags for acute intracranial abnormality at this time. He is completely neurologically intact. Will discharge starting on carbamazepine, follow up with primary care physician in 2-3 days for further evaluation. Departure - Departure Disposition: Home, Routine, Self-Care Clinical Impression: Trigeminal neuralgia Condition: Good Instructions: Trigeminal Neuralgia (ED) Additional Instructions: In addition to the carbamazepine you may take Tylenol 3 times a day as needed. Follow-up with primary care physician in 2-3 days for further evaluation. Return to the emergency department for increasing pain, persistent pain, numbness, weakness, vision or hearing changes, or any other concerns. Prescriptions: carBAMazepine [Carbamazepine] 200 mg PO BID #10 tablet
== END 2018-09-12 15:15 | disposition home or self-care (01) ==
LOC: CED 14:22
DX: G50.0 Trigeminal neuralgia (principal); I10 Essential (primary) hypertension; E78.00 Pure hypercholesterolemia, unspecified
CPT/HCPCS: 99283-ER

== ENCOUNTER → 2018-11-30 | Outpatient (CLI) | payer OTHER | DX: R07.9 Chest pain, unspecified (principal); I25.10 Atherosclerotic heart disease of native coronary artery without angina pectoris; I48.0 Paroxysmal atrial fibrillation | CPT/HCPCS: 78452; 93017; A9500; J2785 ==